=== PATIENT | male | born 1950 | race Two or more races ===

== ENCOUNTER 2021-10-04 15:13 | Emergency (ER) | payer OTHER ==
[~2021-10-04] VITALS: Ht 170.2 cm; Wt 84.4 kg
== END 2021-10-04 20:01 | disposition home or self-care (01) ==
LOC: ER 15:13
DX: S01.81XA Laceration without foreign body of other part of head, initial encounter (principal); W18.39XA Other fall on same level, initial encounter; Y93.9 Activity, unspecified; Y92.018 Other place in single-family (private) house as the place of occurrence of the external cause; Y99.9 Unspecified external cause status; E11.9 Type 2 diabetes mellitus without complications